=== PATIENT | female | born 1990 | race Caucasian/White ===

== ENCOUNTER 2022-06-02 17:40 | Emergency (ER) | payer OTHER ==
[~2022-06-02] VITALS: Ht 162.6 cm; Wt 90.7 kg
[~2022-06-02 17:40] MED LIST: ALBU90OI INH; ALBU90OI6 INH; AZIT250 PO; BENZ100A PO; CODGUAEL PO; CRUTCH4 USE; DEXGUASY PO; DIPATR PO; Esgic Tablet1 EACH PO; Excedrin Extra1 EACH PO; FLUT.05NI; IBUP800 PO; LORA10ER PO; MULVITMIND PO; NAPR220 PO; NAPR500 PO; NUVARING; Nuvaring Vagin1 EACH VG; ONDA4ODT MM; ONDA8ODT MM; PRED20 PO; PROACE100 PO; PROM25 PO; PSEU120ER PO; Percocet 5-3251 EACH PO; Prednisone10 MG PO; Prednisone20 MG PO; SULTRIDS PO; Zofran Odt4 MG SL; Zofran4 MG PO
== END 2022-06-02 19:36 | disposition home or self-care (01) ==
LOC: ER 17:40
DX: S91.012A Laceration without foreign body, left ankle, initial encounter (principal); W26.8XXA Contact with other sharp object(s), not elsewhere classified, initial encounter; Y92.828 Other wilderness area as the place of occurrence of the external cause; Z88.5 Allergy status to narcotic agent; Z79.899 Other long term (current) drug therapy; Z79.82 Long term (current) use of aspirin; Z79.52 Long term (current) use of systemic steroids; Z87.891 Personal history of nicotine dependence
CPT/HCPCS: 73610

== ENCOUNTER → 2024-10-04 | Outpatient (CLI) | payer OTHER | LOC: LAB SHORT 10:55 → LAB 10:55 | DX: R30.0 Dysuria (principal) | CPT/HCPCS: 87086 ==